=== PATIENT | male | born 1975 | race Caucasian/White ===

== ENCOUNTER 2023-03-14 16:01 | Emergency (ER) | payer MEDICAID ==
[~2023-03-14] VITALS: Ht 175.3 cm; Wt 100.0 kg
[2023-03-14 16:13] VITALS: BP 175/91; PULSE 92; RESP 18; TEMP 98.1; O2SAT 100
[2023-03-14] MEDS ORDERED: AMOX-494 MT (17:31)
[2023-03-14] MEDS ORDERED: DOXY100C5 MT (17:31)
== END 2023-03-14 18:14 | disposition home or self-care (01) ==
LOC: ER 16:01
DX: L03.116 Cellulitis of left lower limb (principal); I10 Essential (primary) hypertension; Z98.890 Other specified postprocedural states
CPT/HCPCS: 99283